=== PATIENT | female | born 1985 | race Caucasian/White ===

== ENCOUNTER 2016-10-26 19:52 | Emergency (ER) | payer SELFPAY ==
[~2016-10-26 19:52] MED LIST: CEPH-443 PO; HYDR-3011 PO; HYDR-906 PO; IBUP-1542 PO; PRED50TA PO
== END 2016-10-26 21:21 | disposition left against medical advice (07) ==
LOC: E/R 19:52
DX: Z53.21 Procedure and treatment not carried out due to patient leaving prior to being seen by health care provider (principal)

== ENCOUNTER 2017-10-06 08:43 | Emergency (ER) | END 2017-10-06 10:05 | disposition home or self-care (01) ==